=== PATIENT | male | born 1960 | race Caucasian/White ===

== ENCOUNTER 2019-01-01 13:44 | Outpatient (CLI) | payer OTHER ==
--- NOTE | 2019-01-01 16:07 | RAD ---
LUMBAR SPINE 3 VIEWS: Date: 01/01/19 HISTORY: Disability evaluation. COMPARISON: 09/22/13. FINDINGS: There has been interbody strut type implants at L4-5 and L5-S1. There is bony fusion at these levels. Degenerative change is seen at the disc spaces above L4. Prominent spurring from the lumbar vertebra. Posterior alignment is preserved. No significant change when compared to exam from 2014. IMPRESSION: Postoperative and degenerative changes of the lumbar spine noted as described. Stable in appearance f rom 2013. POS: JEAN MARIE
== END 2019-01-01 13:45 | disposition home or self-care (01) ==
LOC: NAV RAD 13:44
PROVIDERS: ATTEND Family Medicine
DX: M51.17 Intervertebral disc disorders with radiculopathy, lumbosacral region (principal); M47.26 Other spondylosis with radiculopathy, lumbar region; Z98.890 Other specified postprocedural states
CPT/HCPCS: 72100